=== PATIENT | female | born 1930 | race Caucasian/White ===

== ENCOUNTER 2016-11-23 10:00 | Emergency (ER) | payer MEDICARE ==
[2016-11-23] MEDS ORDERED: ROCEPHIN 1 Gm-D5w 50 ml Bag** 50 ML IV ONE ×2 (10:16→10:21)
--- NOTE | 2016-11-23 10:18 | ERPHSYRPT ---
- History of Present Illness Time Seen by Provider: 11/23/16 10:10 Source: patient Exam Limitations: no limitations Patient Subjective Stated Complaint: pt arrived per ambulance for episode of unresponsiveness at the [facility] today, pt had eat breakfast and was sitting in wc when happened,pt is now alert and oriented to person,place, and birthdate, only co is being cold, Triage Nursing Assessment: pt alert, resp easy, skin w/d pale, no edema noted, moves all ext well. pt had blood work and urine and has uti. mn has not seen results yet Physician History: The patient is an 86-year-old female brought in by ambulance from the alf where she was a little bit difficult to arouse earlier this morning. She now appears to be oriented 3. Yesterday she had a urine sample sent for analysis and the alf had not received the results yet. We have the results in hand and that shows a UTI. Her past medical history is significant for Parkinson's dementia. Timing/Duration: today Severity: moderate Modifying Factors: Improves With: nothing Associated Symptoms: malaise Allergies/Adverse Reactions: No Known Drug Allergies Allergy (Unverified 11/23/16 10:12) Home Medications: Aspirin [Aspirin EC] 81 mg PO DAILY 11/15/15 [History] Carbidopa/Levodopa [Sinemet 25-100 mg Tablet] 1 tab PO TID 11/15/15 [History] Midodrine HCl 2.5 mg PO DAILY 11/15/15 [History] Potassium Chloride 20 Meq [Klor-Con 20 MEQ] 20 meq PO DAILY 11/15/15 [History] Prednisone 3 mg PO DAILY 11/15/15 [History] Prednisone 5 mg [Deltasone 5 mg] 5 mg PO DAILY 11/15/15 [History] Acetaminophen 325 mg [Tylenol 325 mg] 650 mg PO Q4H PRN 07/14/16 [History] Memantine HCl 10 mg PO BID 07/14/16 [History] Hx Tetanus, Diphtheria Vaccination/Date Given: Yes Hx Influenza Vaccination/Date Given: Yes Hx Pneumococcal Vaccination/Date Given: Yes Immunizations Up to Date: Yes - Review of Systems Constitutional: Lethargy Eyes: No Symptoms Ears, Nose, & Throat: No Symptoms Respiratory: No Cough, No Dyspnea Cardiac: No Chest Pain, No Edema, No Syncope Abdominal/Gastrointestinal: No Abdominal Pain, No Nausea, No Vomiting, No Diarrhea Genitourinary Symptoms: Dysuria Musculoskeletal: No Back Pain, No Neck Pain Skin: No Rash Neurological: Lethargy, No Dizziness, No Focal Weakness, No Sensory Changes Psychological: No Symptoms Endocrine: No Symptoms Hematologic/Lymphatic: No Symptoms Immunological/Allergic: No Symptoms All Other Systems: Reviewed and Negative - Past Medical History Pertinent Past Medical History: Yes Neurological History: Alzheimer's Disease, Stroke ENT History: Glaucoma Cardiac History: Other Respiratory History: COPD Endocrine Medical History: No Pertinent History Musculoskeletal History: Fractures, Osteoarthritis GI Medical History: No Pertinent History History: No Pertinent History Psycho-Social History: No Pertinent History Female Reproductive Disorders: No Pertinent History Other Medical History: 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, fx to r humerus and old fx to l ankle - Past Surgical History Past Surgical History: Yes Neuro Surgical History: No Pertinent History Cardiac: Pacemaker Respiratory: No Pertinent History Gastrointestinal: Appendectomy Genitourinary: No Pertinent History Musculoskeletal: Orthopedic Surgery Female Surgical History: Hysterectomy Other Surgical History: right humerus repair - Social History Smoking Status: Unknown if ever smoked Exposure to second hand smoke: No Drug Use: none Patient Lives Alone: No ([place]) - Female History Hx Last Menstrual Period: post - Nursing Vital Signs Nursing Vital Signs: Initial Vital Signs Temperature 97.5 F Temperature Source Oral Pulse Rate 70 Respiratory Rate 16 Blood Pressure [Right Arm] 144/65 Pain Intensity 0 - Physical Exam General Appearance: lethargy Eye Exam: PERRL/EOMI, eyes nml inspection Ears, Nose, Throat Exam: normal ENT inspection, TMs normal, pharynx normal, moist mucous membranes Neck Exam: normal inspection, non-tender, supple, full range of motion Respiratory Exam: normal breath sounds, lungs clear, No respiratory distress Cardiovascular Exam: regular rate/rhythm, normal heart sounds, normal peripheral pulses Gastrointestinal/Abdomen Exam: soft, normal bowel sounds, No tenderness, No mass Pelvic Exam: not done Rectal Exam: not done Back Exam: normal inspection, normal range of motion, No CVA tenderness, No vertebral tenderness Extremity Exam: normal inspection, normal range of motion, pelvis stable Neurologic Exam: alert, oriented x 3, cooperative, normal mood/affect, nml cerebellar function, nml station & gait, sensation nml, No motor deficits Skin Exam: normal color, warm, dry, No rash Lymphatic Exam: No adenopathy SpO2 Interpretation: normal SpO2: 94 Oxygen Delivery: Room Air Ordered Tests: Active Orders 24 hr Category Date Time Status IV Insertion STAT Care 11/23/16 10:15 Active BLOOD CULTURE Stat Lab 11/23/16 10:00 Received BMP Stat Lab 11/23/16 10:25 Completed CBC W DIFF Stat Lab 11/23/16 10:25 Completed Lactic Acid Urgent Lab 11/23/16 10:25 Completed Medication Summary Generic Name Dose Route Start Last Admin Trade Name Freq PRN Reason Stop Dose Admin Sodium Chloride 1,000 mls @ 100 mls/hr 11/23/16 10:30 11/23/16 10:22 Sodium Chloride 0.9% 1000 Ml IV 12/23/16 10:29 100 mls/hr .Q10H SUNIL Administration Discontinued Medications Generic Name Dose Route Start Last Admin Trade Name Freq PRN Reason Stop Dose Admin Ceftriaxone Sodium/Dextrose 50 mls @ 100 mls/hr 11/23/16 10:16 11/23/16 10:22 Rocephin 1 Gm-D5w 50 Ml Bag IV 11/23/16 10:45 100 mls/hr STAT ONE Administration Sodium Chloride Confirm 11/23/16 10:21 Sodium Chloride 0.9% 1000 Ml Administered 11/23/16 10:22 Dose 1,000 mls @ ud .ROUTE .STK-MED ONE Ceftriaxone Sodium/Dextrose Confirm 11/23/16 10:21 Rocephin 1 Gm-D5w 50 Ml Bag Administered 11/23/16 10:22 Dose 50 mls @ ud IV .STK-MED ONE Lab/Rad Data: Laboratory Result Diagrams 11/23/16 10:25 11/23/16 10:25 Laboratory Results 11/23/16 11/23/16 11/23/16 Range/Units 10:25 10:25 10:25 WBC 8.2 (4.0-10.5) K/mm3 RBC 4.04 L (4.1-5.4) M/mm3 Hgb 12.0 (12.0-16.0) gm/dl Hct 37.8 (35-47) % MCV 93.6 (78-100) fl MCH 29.7 (26-32) pg MCHC 31.7 L (32-36) g/dl RDW 15.0 H (11.5-14.0) % Plt Count 229 (150-450) K/mm3 MPV 9.1 (6-9.5) fl Gran % 82.2 H (36.0-66.0) % Lymphocytes % 10.7 L (24.0-44.0) % Monocytes % 6.3 (0.0-12.0) % Eosinophils % 0.6 (0.00-5.0) % Basophils % 0.2 (0.0-0.4) % Basophils # 0.02 (0-0.4) Sodium 146 H (136-145) mEq/L Potassium 3.6 (3.5-5.1) mEq/L Chloride 107 (98-107) mEq/L Carbon Dioxide 28.7 (21-32) mEq/L Anion Gap 13.8 (5-15) MEQ/L BUN 25 H (9-20) mg/dL Creatinine 0.87 (0.55-1.30) mg/dl Estimated GFR > 60 ML/MIN Glucose 139 H (70-110) MG/DL Lactic Acid 1.5 (0.4-2.0) Calcium 8.7 (8.5-10.1) mg/dL - Progress Progress: improved Discussed with : Annie Will see patient in: office Counseled pt/family regarding: lab results, diagnosis - Departure Time of Disposition: 13:13 Departure Disposition: Home Clinical Impression: UTI (urinary tract infection) Condition: Stable Critical Care Time: No Prescriptions: Cephalexin 500 mg PO BID #10 tablet
[2016-11-23] MEDS ORDERED: Sodium Chloride 0.9% 1000 ML 1,000 ML ONE (10:21)
[2016-11-23] MEDS ORDERED: Sodium Chloride 0.9% 1000 ML 1,000 ML IV SCH (10:30)
[2016-11-23 10:34] LABS: BASOPHIL % 0.2 % (0.0-0.4); Eosinophil % 0.6 % (0.00-5.0); Granulocytes % 82.2 % (36.0-66.0); Lymphocytes % 10.7 % (24.0-44.0); Mean Cell Volume 93.6 fl (78-100); Mean Corpuscular Hemoglobin 29.7 pg (26-32); Mean Platelet Volume 9.1 fl (6-9.5); Monocytes % 6.3 % (0.0-12.0); Platelet Count 229 K/mm3 (150-450); Red Blood Count 4.04 M/mm3 (4.1-5.4); White Blood Count 8.2 K/mm3 (4.0-10.5)
[2016-11-23 11:28] LABS: ANION GAP 13.8 MEQ/L (5-15); BLOOD UREA NITROGEN 25 mg/dL (9-20); CHLORIDE 107 mEq/L (98-107); Carbon Dioxide 28.7 mEq/L (21-32); Glucose 139 MG/DL (70-110); Potassium 3.6 mEq/L (3.5-5.1); SODIUM 146 mEq/L (136-145)
[2016-11-23 11:55] VITALS: PULSE 70
[2016-11-23 13:15] VITALS: O2SAT 94
[2016-11-23 13:55] VITALS: BP 149/104
== END 2016-11-23 13:52 ==
LOC: ED 10:00
DX: N39.0 Urinary tract infection, site not specified (principal); G20 Parkinson's disease; F02.80 Dementia in other diseases classified elsewhere, unspecified severity, without behavioral disturbance, psychotic disturbance, mood disturbance, and anxiety; Z95.0 Presence of cardiac pacemaker
CPT/HCPCS: 36000; 36415; 80048; 83605; 85025; 87040; 96360; 96361; 99284; J0696

== ENCOUNTER 2016-12-08 09:39 | Day surgery (SDC) | payer MEDICARE ==
[2016-12-08] MEDS ORDERED: Lactated Ringers 1,000 ML IV ONE (09:55)
[2016-12-08] MEDS ORDERED: Lactated Ringers 1,000 ML IV SCH (10:00)
[2016-12-08 10:33] LABS: BASOPHIL % 0.1 % (0.0-0.4); Eosinophil % 0.5 % (0.00-5.0); Granulocytes % 83.2 % (36.0-66.0); Lymphocytes % 9.6 % (24.0-44.0); Mean Cell Volume 92.1 fl (78-100); Mean Corpuscular Hemoglobin 28.9 pg (26-32); Mean Platelet Volume 9.2 fl (6-9.5); Monocytes % 6.6 % (0.0-12.0); Platelet Count 268 K/mm3 (150-450); Red Blood Count 3.91 M/mm3 (4.1-5.4); Red Cell Distribution Width 15.2 % (11.5-14.0)
[2016-12-08 11:03] LABS: ALBUMIN 2.9 g/dL (3.4-5.0); ALKALINE PHOSPHATASE 73 U/L (46-116); ANION GAP 15.4 MEQ/L (5-15); BILIRUBIN,TOTAL 1.1 mg/dL (0.2-1.0); BLOOD UREA NITROGEN 26 mg/dL (9-20); CHLORIDE 105 mEq/L (98-107); Carbon Dioxide 25.6 mEq/L (21-32); Glucose 68 MG/DL (70-110); Potassium 4.1 mEq/L (3.5-5.1); SGOT/AST 17 U/L (15-37); SGPT/ALT 6 U/L (12-78); SODIUM 142 mEq/L (136-145); Total Protein 6.5 gm/dL (6.4-8.2)
[2016-12-08 11:04] LABS: Collection Type CCMS
[2016-12-08 11:06] LABS: COMPLETE URINE MICROSCOPIC? YES
[2016-12-08 11:17] VITALS: BP 164/80; PULSE 70; O2SAT 94
[2016-12-08 11:22] LABS: Bacteria FEW /HPF (NEGATIVE); WBC 50-100 /HPF (0-5)
== END 2016-12-08 13:30 ==
LOC: SDC 09:39
PROVIDERS: ATTEND Orthopaedic Surgery
PROC: 2W5 Placement, Anatomical Regions, Removal (ICD-10-PCS; principal; 2016-12-08)
DX: Z45.89 Encounter for adjustment and management of other implanted devices (principal); Z53.09 Procedure and treatment not carried out because of other contraindication; I10 Essential (primary) hypertension; Z95.0 Presence of cardiac pacemaker; G20 Parkinson's disease; Z79.899 Other long term (current) drug therapy
CPT/HCPCS: 36415; 80053; 81000; 85025; 87086; 96360; 96361